=== PATIENT | male | born 1970 | race Caucasian/White ===

== ENCOUNTER 2020-03-13 10:20 | Emergency (ER) | payer BC ==
[2020-03-13 10:54] LABS: Basophils % 0.8 % (0-1.3); Hematocrit 43.3 % (39.6-49.0); Lymphocytes % 27.5 % (15.3-44.8); RBC Red Blood Cell Count 4.66 M/uL (4.33-5.43)
[2020-03-13 10:56] LABS: Protime INR 0.93
[2020-03-13 11:14] LABS: ALT/SGPT 60 U/L (12-78); AST/SGOT 31 U/L (15-37); Albumin 3.6 g/dL (3.4-5.0); Alkaline Phosphatase 47 U/L (45-117); BUN Blood Urea Nitrogen 15 mg/dL (7-18); Bicarbonate 26 mmol/L (21-32); Bilirubin Direct 0.1 mg/dL (0-0.2); Bilirubin Total 0.5 mg/dL (0.2-1.0); Glucose Level 134 mg/dL (74-106); Magnesium 2.2 mg/dL (1.8-2.4); NT PRO-BNP 27 pg/mL (<125); Potassium 4.1 mmol/L (3.5-5.1); Protein, Total 7.1 g/dL (6.4-8.2); Sodium Level 140 mmol/L (136-145); Troponin (Emerg Dept Use Only) < 0.02 ng/mL (0.0-0.045)
[2020-03-13] MEDS ORDERED: ASPIRIN 81 MG CHEWABLE TABLET ONE (11:37)
[2020-03-13] MEDS ORDERED: NA CHLORIDE 0.9% 500 ML ONE (11:44)
--- NOTE | 2020-03-13 11:48 | RAD REPORT ---
EXAM DESCRIPTION: Drew Single View03/13/2020 10:54 am CLINICAL HISTORY: Chest pain COMPARISON: none FINDINGS: The lungs appear clear of acute infiltrate. The heart is normal size IMPRESSION: No acute abnormalities displayed
--- NOTE | 2020-03-13 11:57 | RAD REPORT ---
EXAM DESCRIPTION: CT - CT CHEST,ABD,PELVIS W/O - 03/13/2020 11:39 am CLINICAL HISTORY: Chest and abdominal pain COMPARISON: None. TECHNIQUE: Computed axial tomography of the chest, abdomen pelvis obtained. IV and oral contrast not requested. This limits evaluation of vessels, mediastinum, jose, solid organs and bowel All CT scans are performed using dose optimization technique as appropriate and may include automated exposure control or mA/KV adjustment according to patient size. FINDINGS: Lungs are clear No mediastinal or hilar lymphadenopathy No pleural effusion. No pericardial effusion. The liver, spleen, pancreas, adrenals and kidneys unremarkable Small gallstone. No gallbladder wall thickening. The distal appendix is mildly dilated measuring 8 millimeters. It contains an appendicolith. There is no stranding within the adjacent fat. No ascites. No free air Diverticula stem from the colon without evidence of diverticulitis Small umbilical hernia contains fat IMPRESSION: Cholelithiasis without evidence of cholecystitis Mild dilatation of the distal appendix containing an appendicolith. This may be a normal finding for the patient given that there is no stranding within the adjacent fat. An early appendicitis can also have this appearance. This should be correlated clinically
--- NOTE | 2020-03-13 13:45 | EDPHYS ---
Physician Documentation [facility] Name: Ashwin Fragoso Age: 49 yrs Sex: Male : 1970 Arrival Date: 03/13/2020 Time: 10:20 Bed 5 Private MD: ED Physician Sony aHuser HPI: 03/13 11:26 This 49 yrs old Male presents to ER via Ambulatory with complaints of Chest kdr Pain. 11:26 The patient or guardian reports chest pain that is located primarily in the anterior kdr chest wall, left. Onset: this morning, Has been intermittent for the last six or seven months. Usually lasts less than five minutes but today and been persistent and then transitioned into left sided dull pressure - felt like someone was sitting on his chest. The pain does not radiate. Associated signs and symptoms: Pertinent positives: abdominal pain, dizziness, lightheadedness, nausea, shortness of breath, Pertinent negatives:. The chest pain is described as aching, dull, a heaviness, a pressure, Usually his pain is brief and sharp but today, it started out that way and then transitioned in to left sided chest pressure. There is some cardiovascular history in his family but no sudden cardiac . His dad when the patient was [age] y/o so no history is known there. Severity of pain: At its worst the pain was moderate just prior to arrival, this morning, in the emergency department the pain has improved markedly. The brief sharp chest pain has been ongoing for months - several times a month. The chest pressure has not occurred before.. The patient has not recently seen a physician. Historical: - Allergies: 10:36 No Known Allergies; ss - Home Meds: 10:36 Metformin Oral [Active]; Amoxicillin Oral [Active]; ss - PMHx: 10:36 borderline DM; ss - Immunization history:: Adult Immunizations up to date. - Social history:: Smoking status: Patient denies any tobacco usage or history of. ROS: 11:26 Constitutional: Negative for fever, chills, and weight loss, Eyes: Negative for injury, kdr pain, redness, and discharge, Neck: Negative for injury, pain, and swelling, Respiratory: Negative for shortness of breath, cough, wheezing, and pleuritic chest pain, Back: Negative for injury and pain, : Negative for injury, bleeding, discharge, and swelling, MS/Extremity: Negative for injury and deformity, Skin: Negative for injury, rash, and discoloration, Neuro: Negative for headache, weakness, numbness, tingling, and seizure activity. Psych: Negative for depression, anxiety, suicide ideation, homicidal ideation, and hallucinations, Allergy/Immunology: Negative for hives, rash, and allergies, Endocrine: Negative for neck swelling, polydipsia, polyuria, polyphagia, and marked weight changes, Hematologic/Lymphatic: Negative for swollen nodes, abnormal bleeding, and unusual bruising. 11:26 Cardiovascular: Positive for chest pain, of the anterior aspect of left upper chest, left lateral anterior chest and left breast, Negative for edema, orthopnea, palpitations, paroxysmal nocturnal dyspnea. Exam: 10:50 ECG was reviewed by the Attending Physician. kdr 11:26 Constitutional: This is a well developed, well nourished patient who is awake, alert, kdr and in no acute distress. Head/Face: Normocephalic, atraumatic. Eyes: Pupils equal round and reactive to light, extra-ocular motions intact. Lids and lashes normal. Conjunctiva and sclera are non-icteric and not injected. Cornea within normal limits. Periorbital areas with no swelling, redness, or edema. Neck: Trachea midline, no thyromegaly or masses palpated, and no cervical lymphadenopathy. Supple, full range of motion without nuchal rigidity, or vertebral point tenderness. No Meningismus. Chest/axilla: Normal chest wall appearance and motion. Nontender with no deformity. No lesions are appreciated. Cardiovascular: Regular rate and rhythm with a normal S1 and S2. No gallops, murmurs, or rubs. Normal PMI, no JVD. No pulse deficits. Respiratory: Lungs have equal breath sounds bilaterally, clear to auscultation and percussion. No rales, rhonchi or wheezes noted. No increased work of breathing, no retractions or nasal flaring. Back: No spinal tenderness. No costovertebral tenderness. Full range of motion. Skin: Warm, dry with normal turgor. Normal color with no rashes, no lesions, and no evidence of cellulitis. MS/ Extremity: Pulses equal, no cyanosis. Neurovascular intact. Full, normal range of motion. Neuro: Awake and alert, GCS 15, oriented to person, place, time, and situation. Cranial nerves II-XII grossly intact. Motor strength 5/5 in all extremities. Sensory grossly intact. Cerebellar exam normal. Normal gait. Psych: Awake, alert, with orientation to person, place and time. Behavior, mood, and affect are within normal limits. 11:26 Abdomen/GI: Inspection: obese Bowel sounds: diminished, in all quadrants, Palpation: soft, mild abdominal tenderness, in the umbilical area, left upper quadrant, right lower quadrant and left lower quadrant, rebound tenderness, is not appreciated. Vital Signs: 10:29 Resp 17; Temp 97.9(TE); Weight 129.27 kg; Height 6 ft. 0 in. (182.88 cm); Pain 5/10; ss 10:42 BP 153 / 95; Pulse 80; Resp 18; Pulse Ox 99% on R/A; ph 11:24 BP 134 / 88; Pulse 88; Resp 16; Pulse Ox 95% on R/A; ph 12:17 BP 150 / 81; Pulse 68; Resp 18; Pulse Ox 96% on R/A; ph 12:55 BP 139 / 81; Pulse 76; Resp 17; Pulse Ox 98% ; jl7 13:38 BP 145 / 77; Pulse 69; Resp 17; Pulse Ox 96% ; jl7 10:29 Body Mass Index 38.65 (129.27 kg, 182.88 cm) ss MDM: 11:26 Data reviewed: vital signs, nurses notes, lab test result(s), radiologic studies. kdr 13:45 Patient medically screened. kdr 13:47 ED course: the patient was feeling better overall though he still had a mild DE PAZ. kdr 03/13 10:41 Order name: Basic Metabolic Panel; Complete Time: 11: ph 03/13 10:41 Order name: CBC with Diff; Complete Time: 11:21 ph 03/13 10:41 Order name: LFT's; Complete Time: 11: ph 03/13 10:41 Order name: Magnesium; Complete Time: 11: ph 03/13 10:41 Order name: NT PRO-BNP; Complete Time: 11:21 ph 03/13 10:41 Order name: PT-INR; Complete Time: 11: ph 03/13 10:41 Order name: Troponin (emerg Dept Use Only); Complete Time: 11: ph 03/13 10:41 Order name: XRAY Chest (1 view); Complete Time: 12:45 ph 03/13 10:41 Order name: EKG; Complete Time: 10:42 ph 03/13 11:38 Order name: CT CHEST,ABD,PELVIS W/O; Complete Time: 12:45 EDMI 03/13 12:46 Order name: Troponin (emerg Dept Use Only); Complete Time: 13:31 kdr 03/13 10:41 Order name: Cardiac monitoring; Complete Time: 11:08 ph 03/13 10:41 Order name: EKG - Nurse/Tech; Complete Time: 11:08 ph 03/13 10:41 Order name: IV Saline Lock; Complete Time: 11: ph 03/13 10:41 Order name: Labs collected and sent; Complete Time: 11: ph 03/13 10:41 Order name: O2 Per Protocol; Complete Time: 11:08 ph 03/13 10:41 Order name: O2 Sat Monitoring; Complete Time: 11:08 ph EC:50 Rate is 80 beats/min. Rhythm is regular, Normal Sinus Rhythm with No ectopy. QRS Lander kdr is Normal. MD interval is normal. QRS interval is normal. QT interval is normal. No Q waves. Clinical impression: Normal ECG. Administered Medications: 11:28 Drug: Aspirin Chewable Tablet 324 mg Route: PO; jl7 12:09 Follow up: Response: No adverse reaction ph 12:09 Not Given (Other Intervention Used): NS 0.9% 500 ml IV at bolus once ph Disposition: 03/13/20 13:45 Discharged to Home. Impression: Chest pain, unspecified, Headache. - Condition is Stable. - Discharge Instructions: General Headache Without Cause, Nonspecific Chest Pain, Zils-or-Sufh. - Prescriptions for Tramadol 50 mg Oral Tablet - take 1 tablet by ORAL route every 8 hours as needed; 12 tablet. - Medication Reconciliation Form, Thank You Letter, Prescription Opioid Use, Work release form form. - Follow up: Private Physician; When: 2 - 3 days; Reason: If symptoms return, Further diagnostic work-up, Recheck today's complaints, Continuance of care, Re-evaluation by your physician. - Problem is an acute exacerbation. - Symptoms have improved. Signatures: Dispatcher [employer] EDMI Sony Hauser MD MD kdr Smirch, Shelby, RN RN ss Deysi Costa RN RN Barber Gill RN RN jl7 Corrections: (The following items were deleted from the chart) 11:38 11:25 Chest Abdomen Pelvis W Con+CT.RAD.BRZ ordered. EDMI EDMS 14:11 13:45 03/13/2020 13:45 Discharged to Home. Impression: Chest pain, unspecified; jl7 Headache. Condition is Stable. Forms are Medication Reconciliation Form, Thank You Letter, Antibiotic Education, Prescription Opioid Use. Follow up: Private Physician; When: 2 - 3 days; Reason: If symptoms return, Further diagnostic work-up, Recheck today's complaints, Continuance of care, Re-evaluation by your physician. Problem is an acute exacerbation. Symptoms have improved. kdr
--- NOTE | 2020-03-13 13:45 | ER ---
Nurse's Notes [facility] Name: Ashwin Fragoso Age: 49 yrs Sex: Male : 1970 Arrival Date: 03/13/2020 Time: 10:20 Bed 5 Private MD: Diagnosis: Chest pain, unspecified;Headache Presentation: 03/13 10:29 Chief complaint: Patient states: Intermittent CP x months. Pt reports usually these ss episodes are sharp, and last only 2-3 minutes. Today, about and hour ago, the pain began and lasted a little longer than usual and now it feels more like pressure. PT denies cough and/ or SOB. Reports that he was seen 2 days ago at Urgent care for fever and given amoxicillin. Denies fever x 48 hours. Urgent care called during triage to notify that the COVID-19 results were negative. Coronavirus screen: At this time, the client does not indicate any symptoms associated with coronavirus-19. The client reports previous COVID testing was negative. Date of collection: March 11, 2020 URGENT CARE- [facility]. Ebola Screen: Patient denies exposure to infectious person. Patient denies travel to an Ebola-affected area in the 21 days before illness onset. Initial Sepsis Screen: Does the patient meet any 2 criteria? No. Patient's initial sepsis screen is negative. Does the patient have a suspected source of infection? No. Patient's initial sepsis screen is negative. Risk Assessment: Do you want to hurt yourself or someone else? Patient reports no desire to harm self or others. Onset of symptoms was March 13, 2020. 10:29 Method Of Arrival: Ambulatory ss 10:29 Acuity: DREA 3 ss Historical: - Allergies: 10:36 No Known Allergies; ss - Home Meds: 10:36 Metformin Oral [Active]; Amoxicillin Oral [Active]; ss - PMHx: 10:36 borderline DM; ss - Immunization history:: Adult Immunizations up to date. - Social history:: Smoking status: Patient denies any tobacco usage or history of. Screenin:42 Abuse screen: Denies threats or abuse. Denies injuries from another. Nutritional ph screening: No deficits noted. Tuberculosis screening: No symptoms or risk factors identified. Fall Risk None identified. Assessment: 11:00 General: Appears in no apparent distress. comfortable, obese, well groomed, Behavior is ph calm, cooperative, appropriate for age, Denies fever, feeling ill. Pain: Complains of pain in chest Pain does not radiate. Pain currently is 5 out of 10 on a pain scale. Pain began weeks ago Is intermittent. Neuro: Level of Consciousness is awake, alert, obeys commands, Oriented to person, place, time, situation. Cardiovascular: Reports chest pain, fatigue, lightheadedness, nausea, shortness of breath, states that symptoms are intermittent Capillary refill < 3 seconds in bilateral fingers Patient's skin is warm and dry. Rhythm is regular. Respiratory: Airway is patent Respiratory effort is even, unlabored, Respiratory pattern is regular, symmetrical. GI: No signs and/or symptoms were reported involving the gastrointestinal system. Derm: Skin is intact, is healthy with good turgor, Skin is pink, warm \T\ dry. 11:25 Reassessment: Patient appears in no apparent distress at this time. Patient and/or ph family updated on plan of care and expected duration. Pain level reassessed. Patient is alert, oriented x 3, equal unlabored respirations, skin warm/dry/pink. 12:17 Reassessment: Patient appears in no apparent distress at this time. Patient and/or ph family updated on plan of care and expected duration. Pain level reassessed. Patient is alert, oriented x 3, equal unlabored respirations, skin warm/dry/pink. 12:49 Reassessment: Patient appears in no apparent distress at this time. Patient and/or ss family updated on plan of care and expected duration. Pain level reassessed. Water given per patient request. 2 Family members remain at bedside. 13:30 Reassessment: Patient appears in no apparent distress at this time. Patient and/or jl7 family updated on plan of care and expected duration. Pain level reassessed. Patient is alert, oriented x 3, equal unlabored respirations, skin warm/dry/pink. Vital Signs: 10:29 Resp 17; Temp 97.9(TE); Weight 129.27 kg; Height 6 ft. 0 in. (182.88 cm); Pain 5/10; ss 10:42 BP 153 / 95; Pulse 80; Resp 18; Pulse Ox 99% on R/A; ph 11:24 BP 134 / 88; Pulse 88; Resp 16; Pulse Ox 95% on R/A; ph 12:17 BP 150 / 81; Pulse 68; Resp 18; Pulse Ox 96% on R/A; ph 12:55 BP 139 / 81; Pulse 76; Resp 17; Pulse Ox 98% ; jl7 13:38 BP 145 / 77; Pulse 69; Resp 17; Pulse Ox 96% ; jl7 10:29 Body Mass Index 38.65 (129.27 kg, 182.88 cm) ED Course: 10:20 Patient arrived in ED. ag5 10:23 Deysi Costa, RN is Primary Nurse. ph 10:31 EKG done, by ED staff, reviewed by Sony Hauser MD. dh3 10:35 Triage completed. ss 10:36 Arm band placed on right wrist. ss 10:40 Initial lab(s) drawn, by me, sent to lab. Inserted saline lock: 22 gauge in right hand, ph using aseptic technique. Blood collected. 10:42 Sony Hasuer MD is Attending Physician. kdr 10:54 XRAY Chest (1 view) In Process Unspecified. EDMS 11:07 Patient has correct armband on for positive identification. Placed in gown. Bed in low ph position. Call light in reach. Side rails up X 1. panel monitor on. Pulse ox on. NIBP on. Door closed. Noise minimized. Warm blanket given. 11:08 Patient maintains SpO2 saturation greater than 95% on room air. ph 11:08 No provider procedures requiring assistance completed. ph 11:39 CT CHEST,ABD,PELVIS W/O In Process Unspecified. EDMS 12:55 Repeat lab(s) drawn. by me, sent to lab. jl7 14:10 IV discontinued, intact, bleeding controlled, No redness/swelling at site. Pressure jl7 dressing applied. Administered Medications: 11:28 Drug: Aspirin Chewable Tablet 324 mg Route: PO; jl7 12:09 Follow up: Response: No adverse reaction ph 12:09 Not Given (Other Intervention Used): NS 0.9% 500 ml IV at bolus once ph Outcome: 13:45 Discharge ordered by . kdr 14:10 Discharged to home ambulatory. jl7 14:10 Condition: stable 14:10 Discharge instructions given to patient, family, Instructed on discharge instructions, follow up and referral plans. medication usage, Demonstrated understanding of instructions, follow-up care, medications, Prescriptions given X 1. 14:11 Patient left the ED. jl7 Signatures: Dispatcher [employer] EDMS Sony Hauser MD MD kdr Smirch, Shelby, RN RN ss Hall, Patricia, RN RN Barber Gill RN RN jl7 Shayna Anaya [facility]
[2020-03-13 14:22] VITALS: TEMP 97.9
[2020-03-13 14:29] VITALS: BP 145/77; O2SAT 96
--- NOTE | 2020-03-14 08:46 | EKG ---
Test Date: 2020-03-13 Test Time: 10:31:23 Technical Inspector: ROB MEASUREMENT RESULTS: Intervals: Rate: 80 OH: 188 QRSD: 88 QT: 370 QTc: 426 [place]: P: 38 OH: 188 QRS: 16 T: 46 INTERPRETIVE STATEMENTS: Normal sinus rhythm Normal ECG No previous ECG available for comparison Electronically Signed On 03-14-20 08:43:52 CDT by Mao Turcios
== END 2020-03-13 14:11 | disposition home or self-care (01) ==
LOC: ER 10:20
DX: R51 Headache (principal); R73.03 Prediabetes
CPT/HCPCS: 93005; 85025; 80048; 36415; 83735; 85610; 80076; 84484 ×2; 83880; 71250; 74176; 71045; J7040